=== PATIENT | male | born 2000 | race Caucasian/White ===

== ENCOUNTER 2021-03-12 07:18 | Emergency (ER) | payer OTHER ==
[~2021-03-12] VITALS: Ht 167.6 cm; Wt 100.0 kg
[2021-03-12 08:59] VITALS: BP 143/69
[2021-03-12] MEDS ORDERED: IBUPROFEN 600 MG TABLET PO ONE (09:00)
== END 2021-03-12 09:10 ==
LOC: EMS 07:23
DX: S93.401A Sprain of unspecified ligament of right ankle, initial encounter (principal); W06.XXXA Fall from bed, initial encounter; Y93.89 Activity, other specified; Y92.89 Other specified places as the place of occurrence of the external cause; Y99.8 Other external cause status
CPT/HCPCS: 29515; 99283